=== PATIENT | female | born 1970 | race Caucasian/White ===

== ENCOUNTER → 2023-07-24 08:50 | Outpatient (REF) | payer BC, SELFPAY | LOC: WDC 08:50 | PROVIDERS: ATTENDING PHYSICIAN Nurse Practitioner | DX: N63.10 Unspecified lump in the right breast, unspecified quadrant (principal); N63.14 Unspecified lump in the right breast, lower inner quadrant | CPT/HCPCS: 76642; 77062; 77066 ==

== ENCOUNTER → 2024-11-29 07:45 | Outpatient (REF) | payer BC, SELFPAY | LOC: WDC 07:45 | PROVIDERS: ATTENDING PHYSICIAN Nurse Practitioner | DX: R92.30 Dense breasts, unspecified (principal) | CPT/HCPCS: 76641 ==

== ENCOUNTER → 2024-12-06 12:29 | Outpatient (REF) | payer BC, SELFPAY | LOC: WDC 12:29 | PROVIDERS: ATTENDING PHYSICIAN Nurse Practitioner | DX: Z12.31 Encounter for screening mammogram for malignant neoplasm of breast (principal) | CPT/HCPCS: 77063; 77067 ==